=== PATIENT | female | born 1995 ===

== ENCOUNTER 2017-04-12 16:50 | Emergency (ER) | payer BC ==
--- NOTE | 2017-04-12 17:27 | UC ---
Throat Pain/Nasal Sky HPI - HPI Summary HPI Summary: 11 DAYS OF SINUS CONGESTION, SINUS PRESSURE. HAS ALLERGIES. NO FEVER. NOT RESOLVING. - History of Current Complaint Chief Complaint: UCRespiratory Stated Complaint: SINUS COMPLAINT Time Seen by Provider: 04/12/17 17:08 Hx Obtained From: Patient Hx Last Menstrual Period: 04/12/17 Onset/Duration: Gradual Onset, Lasting Weeks, Still Present Severity: Mild Cough: Nonproductive Associated Signs & Symptoms: Positive: Hoarseness, Sinus Discomfort, Fever - Epiglottits Risk Factors Epiglottis Risk Factors: Negative - Allergies/Home Medications Allergies/Adverse Reactions: Allergies Allergy/AdvReac Type Severity Reaction Status Date / Time Erythromycin Allergy Rash Verified 04/12/17 17:02 Home Medications: Home Medications Norethindrone Acet & Eth Estra [Loestrin 1.5/30-21 1.5-30 mg-Mcg] 1 tab PO DAILY 04/12/17 [History Confirmed 04/12/17] ZyrTEC 10 MG TAB* 10 mg PO DAILY 04/12/17 [History Confirmed 04/12/17] PMH/Surg Hx/FS Hx/Imm Hx Previously Healthy: Yes Endocrine History Of: Denies: Diabetes, Thyroid Disease Cardiovascular History Of: Denies: Cardiac Disorders, Hypertension Respiratory History Of: Denies: COPD, Asthma GI/ History Of: Denies: Ulcer - Surgical History Surgical History: Yes Surgery Procedure, Year, and Place: tear duct at age 1 - Family History Known Family History: Negative: Respiratory Disease - Social History Occupation: Student Lives: With Family Alcohol Use: Occasionally Substance Use Type: None Smoking Status (MU): Never Smoked Tobacco Household Exposure Type: Cigarettes Review of Systems Constitutional: Negative Skin: Negative Eyes: Negative ENT: Nasal Discharge Respiratory: Cough Cardiovascular: Negative Gastrointestinal: Negative Genitourinary: Negative Motor: Negative Neurovascular: Negative Musculoskeletal: Negative Neurological: Negative Psychological: Negative All Other Systems Reviewed And Are Negative: Yes Physical Exam Triage Information Reviewed: Yes Appearance: Well-Appearing, No Pain Distress, Well-Nourished Vital Signs: Initial Vital Signs Temp 98.3 F 04/12/17 16:57 Pulse 56 04/12/17 16:57 Resp 16 04/12/17 16:57 BP 104/63 04/12/17 16:57 Pulse Ox 100 04/12/17 16:57 Vital Signs Reviewed: Yes Eye Exam: Normal Eyes: Positive: Conjunctiva Clear ENT: Positive: Hearing grossly normal, Pharynx normal, Nasal congestion, TM bulging Dental Exam: Normal Neck exam: Normal Neck: Positive: Supple, Nontender, No Lymphadenopathy Respiratory Exam: Normal Respiratory: Positive: Chest non-tender, Lungs clear, Normal breath sounds, No respiratory distress, No accessory muscle use Cardiovascular Exam: Normal Cardiovascular: Positive: RRR, No Murmur, Pulses Normal, Brisk Capillary Refill Abdominal Exam: Normal Musculoskeletal Exam: Normal Musculoskeletal: Positive: Strength Intact, ROM Intact, No Edema Neurological Exam: Normal Psychological Exam: Normal Psychological: Positive: Normal Response To Family Skin Exam: Normal Throat Pain/Nasal Course/Dx - Differential Dx/Diagnosis Differential Diagnosis/HQI/PQRI: Pharyngitis, Sinusitis, URI Provider Diagnoses: RHINOSINUSITIS Discharge - Discharge Plan Condition: Stable Disposition: HOME Prescriptions: Benzonatate CAP* [Tessalon 100 MG CAP*] 100 mg PO TID PRN #12 cap PRN Reason: Cough Fluticasone NASAL SPRAY 50MCG* [Flonase NASAL SPRAY 50MCG*] 2 spray BOTH NARES DAILY #1 btl Patient Education Materials: Allergic Rhinitis (ED), Rhinosinusitis (ED) Referrals: [facility] [Outside] No Primary Care Phys,NOPCP [Primary Care Provider] -
== END 2017-04-12 17:31 | disposition home or self-care (01) ==
LOC: UCEAST 16:50
DX: J32.9 Chronic sinusitis, unspecified (principal); Z88.1 Allergy status to other antibiotic agents; Z77.22 Contact with and (suspected) exposure to environmental tobacco smoke (acute) (chronic)
CPT/HCPCS: 99202; G0463